=== PATIENT | female | born 1995 | race Caucasian/White ===

== ENCOUNTER 2021-02-09 03:45 | Inpatient (IN) | payer OTHER ==
[2021-02-09] MEDS ORDERED: BUTORPHANOL TARTRATE 1 MG/ML VIAL IVPB ONE (04:20)
[2021-02-09] MEDS ORDERED: PROMETHAZINE HCL 25 MG/1 ML VIAL IVPB ONE (04:20)
[2021-02-09] MEDS: ELECTROLYTE-148 SOLN 1,000 ML IV SCH ×2 (04:30→06:55)
[2021-02-09 04:58] LABS: BASO % 0.1 % (0-2.0); EOS % 0.3 % (0-4.5); HEMATOCRIT 35.5 % (32.4-45.2); HEMOGLOBIN 12.2 GM/dL (10.7-15.3); LYMPH % 11.5 % (8-40); MCH 31.8 pg (25.7-33.7); MCHC 34.2 g/dl (32.0-36.0); MEAN CELL VOLUME 92.8 fl (80-96); MONO % 6.6 % (3.8-10.2); NEUT % 81.5 % (42.8-82.8); PLATELET COUNT 172 10^3/uL (134-434); RBC 3.83 M/mm3 (3.60-5.2); RDW 13.9 % (11.6-15.6); WHITE BLOOD COUNT 16.2 K/mm3 (4.0-10.0)
[2021-02-09] MEDS ORDERED: BUTORPHANOL TARTRATE 2 MG/ML VIAL ONE (04:58)
[2021-02-09] MEDS ORDERED: PROMETHAZINE HCL 25 MG/1 ML VIAL ONE (04:58)
[2021-02-09 05:06] LABS: INR 0.99 (0.83-1.09); PROTHROMBIN TIME (PATIENT) 12.2 SEC (9.7-13.0)
[2021-02-09 05:08] LABS: ACTIVATED PTT 26.2 SECONDS (25.2-36.5)
[2021-02-09 05:20] LABS: CALCIUM 8.8 mg/dL (8.5-10.1)
[2021-02-09 05:24] LABS: CREATININE 0.6 mg/dL (0.55-1.3)
[2021-02-09 05:29] VITALS: BMI 31.1
[2021-02-09 06:37] LABS: HIV INTERPRETATION NEGATIVE (NEGATIVE)
[2021-02-09] MEDS ORDERED: FENTANYL/BUPIVACAINE/NS/PF - PCEA - 50 ML DISP.SYRIN EP ONE ×3 (07:51→16:39)
[2021-02-09] MEDS ORDERED: BUPIVACAINE HCL/PF 0.25% (2.5MG/ML) 10 ML VIAL ONE (07:56)
[2021-02-09] MEDS ORDERED: PCA PUMP KEY 1 EACH EACH ONE (07:59)
[2021-02-09] MEDS ORDERED: NALOXONE HCL 0.4 MG/ML VIAL IVPUSH PRN (08:23)
[2021-02-09] MEDS ORDERED: FENTANYL/BUPIVACAINE/NS/PF - PCEA - 50 ML DISP.SYRIN EP SCH (08:30)
[2021-02-09] MEDS ORDERED: PCA PUMP NR ONE ×2 (09:23→19:34)
[2021-02-09] MEDS ORDERED: DEXTROSE 5%-LACTATED RINGERS 1,000 ML IV SCH (10:15)
[2021-02-09] MEDS ORDERED: OXYTOCIN 30 UNITS in 0.9% NS 30 UNIT/500 ML INFUS.BAG IVPB SCH (14:00)
[2021-02-09] MEDS ORDERED: OXYTOCIN 30 UNITS in 0.9% NS 30 UNIT/500 ML INFUS.BAG IVPB ONE (17:25)
[2021-02-09] MEDS ORDERED: OXYTOCIN 20 UNITS in 0.9% NS 20 UNIT/1,000 ML INFUS.BAG IV ONE (18:06)
[2021-02-09] MEDS: OXYTOCIN 20 UNITS in 0.9% NS 20 UNIT/1,000 ML INFUS.BAG IV SCH (21:16)
[2021-02-09] MEDS ORDERED: BENZOCAINE 20% 57 GM BOTTLE TP PRN (21:33)
[2021-02-09] MEDS ORDERED: WITCH HAZEL 50% (TUCKS) 40 PAD/JAR PAD TP PRN (21:33)
[2021-02-09] MEDS ORDERED: BENZOCAINE 28 GM HEMORRHOIDAL OINTMENT TP PRN (21:33)
[2021-02-09] MEDS ORDERED: oxyCODONE HCL 5 MG TABLET PO PRN (21:33)
[2021-02-09] MEDS ORDERED: BISACODYL 10 MG SUPP.RECT RC PRN (21:33)
[2021-02-09] MEDS ORDERED: METHYLERGONOVINE MALEATE 0.2 MG/1 ML AMP IM PRN (21:33)
[2021-02-09] MEDS ORDERED: IBUPROFEN 600 MG TABLET (FP) PO ONE (21:38)
[2021-02-09] MEDS: IBUPROFEN 600 MG TABLET (FP) PO PRN (21:53)
[2021-02-10] MEDS: OXYTOCIN 20 UNITS in 0.9% NS 20 UNIT/1,000 ML INFUS.BAG IV SCH (00:55)
[2021-02-10] MEDS: ACETAMINOPHEN 325 MG TABLET (FP) PO PRN ×3 (01:49→18:46)
[2021-02-10] MEDS: IBUPROFEN 600 MG TABLET (FP) PO PRN ×3 (01:49→21:35)
[2021-02-10] MEDS: PRENATAL VITAMINS W/ FOLIC ACID TABLET (FP) PO SCH (09:08)
[2021-02-10 09:50] LABS: BASO % 0.3 % (0-2.0); EOS % 0.1 % (0-4.5); HEMOGLOBIN 10.9 GM/dL (10.7-15.3); LYMPH % 8.7 % (8-40); MCH 31.8 pg (25.7-33.7); MEAN CELL VOLUME 93.5 fl (80-96); MEAN PLT VOLUME 9.2 fl (7.5-11.1); MONO % 6.1 % (3.8-10.2); NEUT % 84.8 % (42.8-82.8); PLATELET COUNT 151 10^3/uL (134-434); RBC 3.42 M/mm3 (3.60-5.2); RDW 14.6 % (11.6-15.6); WHITE BLOOD COUNT 20.3 K/mm3 (4.0-10.0)
[2021-02-10] MEDS ORDERED: DIPHTH,PERTUSS(ACELL),TET 0.5 ML DISP.SYRIN IM ONE (10:00)
[2021-02-10 10:29] LABS: ANISOCYTOSIS 0; HELMET CELLS 0; HOWELL-JOLLY BODIES 0; MACROCYTOSIS 0; OVALOCYTE 0; PLATELET ESTIMATE DECREASED; ROULEAU 0; SICKELED CELLS 0; TARGET CELLS 0; TEAR DROP CELLS 0; TOXIC GRANULATION 0
[2021-02-10] MEDS ORDERED: SENNOSIDES/DOCUSATE COMBO (SENNA PLUS) TABLET (UD) PO PRN (22:00)
[2021-02-11] MEDS: IBUPROFEN 600 MG TABLET (FP) PO PRN ×2 (06:22→10:17)
[2021-02-11] MEDS: PRENATAL VITAMINS W/ FOLIC ACID TABLET (FP) PO SCH (10:13)
[2021-02-11 11:20] VITALS: BP 103/69; PULSE 74; TEMP 97.7
== END 2021-02-11 17:15 | disposition home or self-care (01) | DRG 560 ==
LOC: JLDR 03:45 → J3W 23:25
PROVIDERS: ADMIT Obstetrics & Gynecology; ATTEND Obstetrics & Gynecology
PROC: 10E0XZZ Delivery of Products of Conception, External Approach (ICD-10-PCS; principal; 2021-02-09)
DX: O70.0 First degree perineal laceration during delivery (principal); Z3A.39 39 weeks gestation of pregnancy; Z37.0 Single live birth
CPT/HCPCS: 36415; 59409; 80048; 85025; 85610; 85730; 86780; 86850; 86900; 86901; 87389; C9803; U0003; U0005